=== PATIENT | male | born 2000 | race Caucasian/White ===

== ENCOUNTER 2023-08-07 00:17 | Emergency (ER) | payer BC ==
[2023-08-07 00:33] VITALS: BP 152/96; PULSE 78
[2023-08-07] MEDS: Proparacaine 0.5% Ophth Soln 15 ML Bottle EYEBOTH STA (00:54)
[2023-08-07] MEDS: Take Home: Acetaminophen/HYDROcodone 325-5 MG, 5 Tab Pack PO ONE (01:39)
== END 2023-08-07 01:42 | disposition home or self-care (01) ==
LOC: DL.ED 00:17
DX: H10.213 Acute toxic conjunctivitis, bilateral (principal)
CPT/HCPCS: 99282; 99283; A9270; J3490